=== PATIENT | female | born 1955 | race Caucasian/White ===

== ENCOUNTER 2017-05-18 20:53 | Emergency (ER) | payer BC ==
[~2017-05-18] VITALS: Ht 162.6 cm; Wt 108.9 kg
[~2017-05-18 20:53] MED LIST: ATEN-166; BENA20TA2
[2017-05-18 20:59] VITALS: BP_SYST 123
--- NOTE | 2017-05-18 21:28 | NUR ---
Patient to ER bed 4 to gown for evaluation. Side rails up. Report given to MICHAEL HANEY.
--- NOTE | 2017-05-18 21:40 | NUR ---
Patient brought in with complaining of left shoulder pain and bilateral knee pain. Patient states she was walking toward her car and tripped over a speed bump, falling forward landing on both knees and onto her left shoulder. Patient has limited range of motion to left shoulder. Pain 5/10 dull. No other complaints/injuries per patient or as noted. Will continue to monitor.
--- NOTE | 2017-05-18 23:05 | NUR ---
ER at bedside examining patient.
[2017-05-18 23:20] VITALS: BP_SYST 123
--- NOTE | 2017-05-18 23:20 | NUR ---
Patient placed in right shoulder immobilizer. Patient tolerated well.
[2017-05-18] MEDS: HYDROcodone/ACETAMIN 10-325 MG TAB PO ONE (23:27)
--- NOTE | 2017-05-18 23:30 | NUR ---
Patient given written and verbal discharge instructions and verbalizes understanding. ER MD discussed with patient the results and treatment provided. Patient in stable condition. ID arm band removed. Rx of [place] given. Patient educated on pain management and to follow up with PMD in 2-3 days. Pain Scale 0/10 Opportunity for questions provided and answered.
--- NOTE | 2017-05-18 23:40 | NUR ---
Note [email or web address] in EDM - 05/19/17 at 0022 by [email or web address] Patient brought in with complaining of left shoulder pain and bilateral knee pain. Patient states she was walking toward her car and tripped over a speed bump, falling forward landing on both knees and onto her left shoulder. Patient has limited range of motion to left shoulder. Pain 5/10 dull. No other complaints/injuries per patient or as noted. Will continue to monitor.
== END 2017-05-18 23:30 | disposition home or self-care (01) ==
LOC: SED 20:53
DX: S43.401A Unspecified sprain of right shoulder joint, initial encounter (principal); M25.561 Pain in right knee; M25.562 Pain in left knee; W01.0XXA Fall on same level from slipping, tripping and stumbling without subsequent striking against object, initial encounter; Y93.89 Activity, other specified; Y92.89 Other specified places as the place of occurrence of the external cause; Y99.8 Other external cause status
CPT/HCPCS: 73030; 99284